=== PATIENT | male | born 1965 | race Caucasian/White ===

== ENCOUNTER 2020-06-29 08:35 | Observation (INO) ==
[2020-06-29] MEDS ORDERED: SODIUM CHLORIDE 0.9% 1,000 ML IV STA (10:02)
[2020-06-29] MEDS ORDERED: ONDANSETRON 4 MG/2 ML VIAL IV STA (10:03)
[2020-06-29 10:38] LABS: Basophils # 0.1 10*3/uL (0.0-0.2); Basophils % 0.7 % (0.0-0.8); Eosinophils # 1.1 10*3/uL (0.0-0.87); Eosinophils % 11.9 % (0.00-10.9); Hematocrit 44.3 VOL% (42.0-52.0); Hemoglobin 14.7 GM/DL (14.0-18.0); Immature Granulocytes % 0.3 %; Immature Granulocytes Absolute 0.03 #; Lymphocytes # 1.6 10*3/uL (1.4-4.0); Lymphocytes % 16.5 % (21.2-54.2); Mean Corpuscular HGB Conc 33.2 GM/DL (32-36); Mean Corpuscular Volume 90.6 FL (87-102); Monocytes % 7.8 % (1.7-12.7); Neutrophils % 62.8 % (38.7-73.9); Platelet Count 215 T/CUMM (130-400); Red Blood Count 4.89 MC/CUMM (3.8-5.5); Red Cell Distribution Width 13.5 % (9.3-17.3); White Blood Count 9.4 T/CUMM (4-12)
[2020-06-29 10:56] LABS: Eosinophils 5 % (0-10); Lymphocytes 17 % (20-55); Segmented Neutrophils 70 % (50-85); Total Cells Counted 100
[2020-06-29 10:57] LABS: Hypochromasia 1+; Platelet Estimate Adequate
[2020-06-29 11:20] LABS: Alanine Aminotransferase 27 U/L (16-61); Albumin 3.5 G/DL (3.4-5.0); Alkaline Phosphatase 84 U/L (45-117); Aspartate Amino Transferase 18 U/L (0-37); Bilirubin,Total < 0.39 MG/DL (0.2-1.0); Blood Urea Nitrogen 33 MG/DL (7-18); Calcium 9.3 MG/DL (8.5-10.1); Estimated Glom Filtration Rate 60 ML/MIN; Glucose 114 MG/DL (74-106); Total Protein 7.9 G/DL (6.4-8.3)
[2020-06-29] MEDS ORDERED: ceFAZolin 1,000 MG in SYRINGE 1 EACH IV ONE (11:31)
[2020-06-29] MEDS ORDERED: ACETAMINOPHEN 325 MG TABLET PO PRN (11:34)
[2020-06-29] MEDS ORDERED: HYDROmorphone 2 MG/1 ML VIAL IV PRN (11:34)
[2020-06-29] MEDS ORDERED: ALBUTEROL/IPRATROPIUM 3 ML NEB RESP TX PRN (11:34)
[2020-06-29] MEDS ORDERED: KETOROLAC 15 MG/1 ML VIAL IV PRN (11:34)
[2020-06-29] MEDS ORDERED: ONDANSETRON 4 MG/2 ML VIAL IV PRN ×2 (11:34→17:38)
[2020-06-29] MEDS: HYDROmorphone 2 MG/1 ML VIAL IV PRN ×4 (12:02→17:50)
[2020-06-29] MEDS: LACTATED RINGERS 1,000 ML IV SCH ×2 (13:24→22:24)
[2020-06-29] MEDS ORDERED: BUPIVACAINE MPF 0.25% 30 ML VIAL ONE (14:48)
[2020-06-29] MEDS ORDERED: LIDOCAINE 1% 20 ML VIAL ONE (14:48)
[2020-06-29] MEDS ORDERED: TISSUE ADHESIVE 1 EACH APPLICATOR TOP ONE (14:49)
[2020-06-29 16:01] LABS: Bilirubin,Urine Negative (Negative); Blood, Urine Negative (Negative); Glucose,Urine (UA) Negative (Negative); Ketones,Urine Negative (Negative); Mucus,Urine Occasional /LPF (Occasional); Nitrite,Urine Negative (Negative); Protein,Urine Negative; RBC,Urine 1 /HPF (0-4); Squamous Epithelial Cell,Urine Occasional /HPF (0-10); Urine Appearance CLEAR (Clear); Urine Color Yellow (Yellow); Urine Specific Gravity 1.023 (1.001-1.035); Urine Urobilinogen < 2.0 EU/DL (0.2-1.0); WBC,Urine 8 /HPF (0-6)
[2020-06-29 16:15] LABS: Barbiturates Screen,Urine Negative (Negative); Benzodiazepines Screen,Urine Negative (Negative); Cannabinoid Screen,Urine Positive (Negative); Opiate Screen,Urine Positive (Negative); Phencyclidine Screen,Urine Negative (Negative)
[2020-06-29] MEDS ORDERED: ACETAMINOPHEN 1,000 MG/100 ML VIAL IV ONE (17:27)
[2020-06-29] MEDS ORDERED: LACTATED RINGERS 1,000 ML IV ONE (17:27)
[2020-06-29] MEDS ORDERED: SEVOFLURANE 1 UNIT/15 MINUTE INH ONE (17:27)
[2020-06-29] MEDS ORDERED: SUCCINYLCHOLINE 200 MG/10 ML VIAL ONE ×2 (17:27)
[2020-06-29] MEDS ORDERED: ROCURONIUM 50 MG/5 ML VIAL IV ONE (17:27)
[2020-06-29] MEDS ORDERED: propofoL 200 MG/20 ML VIAL IV ONE (17:27)
[2020-06-29] MEDS ORDERED: LIDOCAINE 2% 5 ML VIAL ONE (17:27)
[2020-06-30] MEDS: HYDROmorphone 2 MG/1 ML VIAL IV PRN (02:18)
[2020-06-30] MEDS: LACTATED RINGERS 1,000 ML IV SCH ×2 (05:07→13:06)
[2020-06-30 05:54] LABS: Basophils % 0.6 % (0.0-0.8); Eosinophils # 1.2 10*3/uL (0.0-0.87); Eosinophils % 16.6 % (0.00-10.9); Immature Granulocytes % 0.1 %; Immature Granulocytes Absolute 0.01 #; Lymphocytes # 1.6 10*3/uL (1.4-4.0); Lymphocytes % 22.7 % (21.2-54.2); Mean Corpuscular Volume 91.2 FL (87-102); Mean Platelet Volume 11.2 FL (9.6-12.0); Monocytes % 8.2 % (1.7-12.7); Neutrophils % 51.8 % (38.7-73.9); Red Cell Distribution Width 13.5 % (9.3-17.3); White Blood Count 7.2 T/CUMM (4-12)
[2020-06-30 06:17] LABS: Calcium 7.9 MG/DL (8.5-10.1); Osmolality,Calculated 280.5 MOS/KG (273-304)
[2020-06-30 06:47] LABS: Hemoglobin 10.9 GM/DL (14.0-18.0); Platelet Count 144 T/CUMM (130-400); Red Blood Count 3.62 MC/CUMM (3.8-5.5)
[2020-06-30 06:51] LABS: Eosinophils 16 % (0-10); Lymphocytes 19 % (20-55); Segmented Neutrophils 55 % (50-85); Total Cells Counted 100
[2020-06-30 06:52] LABS: Hypochromasia 1+; Microcytosis 1+; Ovalocytes Slight; Platelet Estimate Normal
[2020-06-30] MEDS ORDERED: PANTOPRAZOLE 40 MG TABLET PO SCH (09:00)
[2020-06-30 14:26] VITALS: BP 188/95
== END 2020-06-30 14:34 | disposition home or self-care (01) ==
LOC: N.EDINP 08:35 → N.ED 08:35 → N.TELES 15:19
PROVIDERS: ADMIT Surgery; ATTEND Surgery